=== PATIENT | female | born 1975 | race Caucasian/White ===

== ENCOUNTER 2024-01-18 12:29 | Inpatient (IN) | payer BC ==
[~2024-01-18] VITALS: Ht 160 cm; Wt 76.7 kg
[2024-01-18 12:33] VITALS: BP 120/70; PULSE 78; RESP 18; TEMP 97.4; O2SAT 97
[2024-01-18 13:45] LABS: BASOPHILS % (AUTO) 0.2 % (0.0-2.0); EOSINOPHILS % (AUTO) 0.3 % (0.0-4.0); HEMATOCRIT 34.8 % (36-48); HEMOGLOBIN 11.5 g/dL (12.0-16.0); LYMPHOCYTES # (AUTO) 1.9 K/uL (2.5-16.5); LYMPHOCYTES % (AUTO) 17.2 % (20.5-51.1); MEAN CORPUSCULAR HEMOGLOBIN 28 pg (27-31); MEAN CORPUSCULAR HGB CONC 33 g/dL (33-37); MEAN CORPUSCULAR VOLUME 85.2 fL (80-94); MONOCYTES # (AUTO) 0.5 K/uL (0.8-1.0); MONOCYTES % (AUTO) 4.2 % (1.7-9.3); NEUTROPHILS # (AUTO) 8.8 K/uL (1.8-7.7); NEUTROPHILS % (AUTO) 78.1 % (42.2-75.2); PLATELET COUNT (AUTO) 211 K/uL (140-450); RED BLOOD CELL COUNT(AUTO) 4.08 MIL/uL (4.20-5.40); RED CELL DISTRIBUTION WIDTH 13.5 % (11.6-13.7); WHITE BLOOD COUNT (AUTO) 11.3 K/uL (4.8-10.8)
[2024-01-18 13:51] LABS: APPEARANCE,URINE CLEAR (CLEAR); BILIRUBIN,URINE NEGATIVE (NEGATIVE); BLOOD, URINE NEGATIVE (NEGATIVE); COLOR,URINE YELLOW (YELLOW); LEUKOCYTE ESTERASE ,URINE NEGATIVE (NEGATIVE); NITRITE, URINE NEGATIVE (NEGATIVE); PROTEIN,URINE TRACE (NEGATIVE); UGLUCOSE 3+ (NEGATIVE)
[2024-01-18] MEDS: ONDANSETRON 4 MG/2 ML VIAL IVP ONE (13:54)
[2024-01-18] MEDS: KETOROLAC 30 MG/ML VIAL IVP ONE (13:55)
[2024-01-18 14:02] LABS: ANION GAP 12.5 (8-16); CALCIUM 8.8 mg/dL (8.5-10.1); CARBON DIOXIDE 28.6 mmol/L (21-32); CREATININE 0.7 mg/dL (0.6-1.3); POTASSIUM 4.1 mmol/L (3.5-5.1)
[2024-01-18 14:07] LABS: ALBUMIN 3.3 g/dL (3.4-5.0); BILIRUBIN,DIRECT 0.1 mg/dL (0.0-0.3); TOTAL BILIRUBIN 0.5 mg/dL (0.0-1.0); TOTAL PROTEIN, SERUM 7.1 g/dL (6.4-8.2)
[2024-01-18] MEDS ORDERED: ONDANSETRON 4 MG/2 ML VIAL IM/IVP PRN (16:30)
[2024-01-18] MEDS ORDERED: guaiFENesin DM 200/20 MG-10 ML 10 ML UDC PO PRN (16:30)
[2024-01-18] MEDS ORDERED: ACETAMINOPHEN 325 MG TAB PO PRN (16:30)
[2024-01-18] MEDS ORDERED: ZOLPIDEM 5 MG TAB PO PRN (16:30)
[2024-01-18] MEDS ORDERED: DOCUSATE SODIUM 100 MG GELCAP PO PRN (16:30)
[2024-01-18] MEDS ORDERED: DEXTROSE 50% 50 ML SYR IVP PRN (16:35)
[2024-01-18 16:58] LABS: INR 0.94 (0.8-1.2); PROTHROMBIN TIME 9.9 secs (10.8-13.4)
[2024-01-18] MEDS ORDERED: PIPERACILLIN/TAZOBACTAM 3.375 GM VIAL IV ONE (17:07)
[2024-01-18] MEDS: NACL 0.9% 1,000 ML IV SCH (17:13)
[2024-01-18] MEDS: PIPERACILLIN/TAZOBACTAM 3.375 GM in DEXTROSE 5% 50 ML IV ONE (17:13)
[2024-01-18] MEDS ORDERED: METF-346 PO (17:18)
[2024-01-18 20:00] VITALS: BP 102/69; PULSE 96; RESP 16; TEMP 98.6; O2SAT 98
[2024-01-18] MEDS: BLOOD GLUCOSE MONITORING 1 DEV DEV FS SCH (21:00)
[2024-01-18] MEDS: INSULIN LISPRO SLIDING SCALE 100 UNITS/ML VIAL SUBQ PRN (21:17)
[2024-01-18] MEDS: PIPERACILLIN/TAZOBACTAM 3.375 GM in DEXTROSE 5% 50 ML IV SCH (21:37)
[2024-01-18] MEDS: PIPERACILLIN/TAZOBACTAM 3.375 GM VIAL IV ONE (21:41)
[2024-01-19] VITALS (9 sets, daily range): BP systolic 96–122; BP diastolic 59–70; PULSE 62–78; RESP 18; TEMP 97–97.7; O2SAT 94–100
[2024-01-19] MEDS: PIPERACILLIN/TAZOBACTAM 3.375 GM VIAL IV ONE (04:00)
[2024-01-19 05:43] LABS: BASOPHILS % (AUTO) 0.2 % (0.0-2.0); EOSINOPHILS # (AUTO) 0.1 K/uL (0-0.4); HEMATOCRIT 32.9 % (36-48); HEMOGLOBIN 10.9 g/dL (12.0-16.0); LYMPHOCYTES # (AUTO) 2.8 K/uL (2.5-16.5); LYMPHOCYTES % (AUTO) 30.6 % (20.5-51.1); MEAN CORPUSCULAR HEMOGLOBIN 29 pg (27-31); MEAN CORPUSCULAR HGB CONC 33 g/dL (33-37); MEAN CORPUSCULAR VOLUME 86.2 fL (80-94); MONOCYTES # (AUTO) 0.6 K/uL (0.8-1.0); MONOCYTES % (AUTO) 6.1 % (1.7-9.3); NEUTROPHILS # (AUTO) 5.7 K/uL (1.8-7.7); NEUTROPHILS % (AUTO) 62.1 % (42.2-75.2); PLATELET COUNT (AUTO) 196 K/uL (140-450); RED BLOOD CELL COUNT(AUTO) 3.82 MIL/uL (4.20-5.40); RED CELL DISTRIBUTION WIDTH 13.5 % (11.6-13.7); WHITE BLOOD COUNT (AUTO) 9.1 K/uL (4.8-10.8)
[2024-01-19 06:15] LABS: ALBUMIN 2.9 g/dL (3.4-5.0); ANION GAP 12.6 (8-16); CALCIUM 8.4 mg/dL (8.5-10.1); CARBON DIOXIDE 26.8 mmol/L (21-32); CREATININE 0.7 mg/dL (0.6-1.3); POTASSIUM 3.4 mmol/L (3.5-5.1); TOTAL BILIRUBIN 0.6 mg/dL (0.0-1.0); TOTAL PROTEIN, SERUM 6.5 g/dL (6.4-8.2)
[2024-01-19] MEDS: PANTOPRAZOLE 40 MG TABEC PO SCH (09:00)
[2024-01-19] MEDS: SODIUM 10 ML ONE (10:21)
[2024-01-19] MEDS: ROCURONIUM 50 MG/5 ML VIAL IV ONE (10:21)
[2024-01-19] MEDS: PROPOFOL 200 MG/20 ML VIAL IV ONE (10:21)
[2024-01-19] MEDS: LIDOCAINE MPF 2% 100 MG/5 ML VIAL INJ ONE (10:21)
[2024-01-19] MEDS: fentaNYL citrate 0.05 MG/ML VIAL ONE ×2 (10:24)
[2024-01-19] MEDS: MIDAZOLAM 2 MG/2 ML VIAL ONE (10:25)
[2024-01-19] MEDS ORDERED: SEVOFLURANE 250 ML BTL INH ONE (10:42)
[2024-01-19] MEDS: BUPIVACAINE-MPF 0.25% 30 ML VIAL INJ ONE (11:22)
[2024-01-19] MEDS: LIDOCAINE/EPI 1% 1:100000 20 ML VIAL INJ ONE (11:22)
[2024-01-19] MEDS: ONDANSETRON 4 MG/2 ML VIAL ONE (11:24)
[2024-01-19] MEDS: SUGAMMADEX SODIUM 200 MG/2 ML VIAL IV ONE (11:24)
[2024-01-19] MEDS: METOCLOPRAMIDE 10 MG/2 ML INJ VIAL ONE (11:24)
[2024-01-19] MEDS: HYDROmorphone PFS 2 MG/ML SYR ONE (12:14)
[2024-01-19] MEDS: HYDROmorphone 1 MG/ML AMP IVP PRN (12:20)
[2024-01-19] MEDS: PIPERACILLIN/TAZOBACTAM 3.375 GM in DEXTROSE 5% 50 ML IV SCH (13:43)
[2024-01-19] MEDS: HYDROcodone/APAP 7.5/325 MG 1 TAB PO PRN (20:54)
[2024-01-19] MEDS: INSULIN LANTUS 100 UNITS/ML 10 ML VIAL SUBQ SCH (22:55)
[2024-01-20] VITALS: BP 110/65; PULSE 66; RESP 18; TEMP 97.5; O2SAT 96
[2024-01-20 04:00] VITALS: BP 94/59; PULSE 73; RESP 18; TEMP 99; O2SAT 96
[2024-01-20 06:04] LABS: ALBUMIN 2.7 g/dL (3.4-5.0); CALCIUM 8.3 mg/dL (8.5-10.1); CARBON DIOXIDE 25.4 mmol/L (21-32); CREATININE 0.7 mg/dL (0.6-1.3); POTASSIUM 3.4 mmol/L (3.5-5.1); TOTAL BILIRUBIN 0.9 mg/dL (0.0-1.0); TOTAL PROTEIN, SERUM 6.3 g/dL (6.4-8.2)
[2024-01-20 06:18] LABS: BASOPHILS % (AUTO) 0.3 % (0.0-2.0); EOSINOPHILS % (AUTO) 0.2 % (0.0-4.0); HEMATOCRIT 31.9 % (36-48); HEMOGLOBIN 10.5 g/dL (12.0-16.0); LYMPHOCYTES # (AUTO) 2.5 K/uL (2.5-16.5); LYMPHOCYTES % (AUTO) 19.8 % (20.5-51.1); MEAN CORPUSCULAR HEMOGLOBIN 29 pg (27-31); MEAN CORPUSCULAR HGB CONC 33 g/dL (33-37); MEAN CORPUSCULAR VOLUME 87.2 fL (80-94); MONOCYTES # (AUTO) 0.6 K/uL (0.8-1.0); MONOCYTES % (AUTO) 4.5 % (1.7-9.3); NEUTROPHILS # (AUTO) 9.4 K/uL (1.8-7.7); NEUTROPHILS % (AUTO) 75.2 % (42.2-75.2); PLATELET COUNT (AUTO) 202 K/uL (140-450); RED BLOOD CELL COUNT(AUTO) 3.65 MIL/uL (4.20-5.40); RED CELL DISTRIBUTION WIDTH 13.5 % (11.6-13.7); WHITE BLOOD COUNT (AUTO) 12.5 K/uL (4.8-10.8)
[2024-01-20 08:00] VITALS: BP 97/62; PULSE 73; RESP 18; TEMP 97.9; O2SAT 96
[2024-01-20] MEDS: POTASSIUM CHLORIDE 10 MEQ TABER PO PRN (09:27)
[2024-01-20] MEDS ORDERED: AMOX-999 PO (11:33)
[2024-01-20] MEDS ORDERED: IBUP-2213 PO (11:33)
[2024-01-20 12:00] VITALS: BP 97/62; PULSE 73; RESP 18; TEMP 97.9; O2SAT 96
[2024-01-20 13:09] VITALS: BP 97/62; PULSE 73; RESP 18; TEMP 97.9
== END 2024-01-20 13:45 | disposition home or self-care (01) | DRG 419 ==
LOC: MED 12:29 → MTU 16:30
PROVIDERS: ADMIT Student in an Organized Health Care Education/Training Program; ATTEND Student in an Organized Health Care Education/Training Program
PROC: 0FT44ZZ Resection of Gallbladder, Percutaneous Endoscopic Approach (ICD-10-PCS; principal; 2024-01-19 11:00)
DX: K81.0 Acute cholecystitis (principal); E11.9 Type 2 diabetes mellitus without complications; Z79.899 Other long term (current) drug therapy
CPT/HCPCS: 36415; 71045; 76705; 80048; 80053; 80076; 81003; 82948; 83690; 85025; 85610; 86886; 86900; 86901; 87081; 93005; 96374; 96375; 99291; J1170; J1815; J1885; J2001; J2250; J2405; J2543; J2704; J2765; J3010; J3490; J7030; J7060; J7120; Q0092